=== PATIENT | female | born 1995 | race Caucasian/White ===

== ENCOUNTER → 2024-09-06 14:13 | Outpatient (CLI) | payer OTHER, SELFPAY ==
[2024-09-06 15:13] LABS: Add Manual Diff / Slide Review NO; Basophils Absolute Auto 0 /uL (0-100); Basophils Percent Auto 0.4 % (0-2); Eosinophils Absolute Auto 100 /uL (0-450); Eosinophils Percent Auto 0.8 % (2-4); Hematocrit 38.9 % (36-46); Hemoglobin 13.3 g/dL (12.0-16.0); Lymphocytes Absolute Auto 1400 /uL (1100-4500); Lymphocytes Percent Auto 18.5 % (25-40); Mean Corpuscular HGB Conc 34.2 % (30-36); Mean Corpuscular Hemoglobin 30.8 PG (26-34); Mean Corpuscular Volume 89.9 fL (80-100); Monocytes Absolute Auto 400 /uL (0-900); Monocytes Percent Auto 4.7 % (3-14); Neutrophils Absolute Auto 5800 /uL (1500-7000); Neutrophils Percent Auto 75.6 % (50-75); Platelet Count 247 X10^3/uL (150-400); Red Blood Cell Count 4.33 X10^6/uL (4.0-5.2); Red Cell Distribution Width 12.6 % (11.6-14.8); White Blood Cell Count 7.7 X10^3/uL (4.5-11.0)
[2024-09-06 15:14] LABS: Appearance Urine UA CLEAR; Bilirubin Urine UA NEGATIVE (NEGATIVE); Color Urine UA YELLOW; Glucose Urine UA NEGATIVE (Negative); Ketones Urine UA NEGATIVE (NEGATIVE); Leukocyte Esterase Urine UA TRACE (NEGATIVE); Nitrite Urine UA NEGATIVE (Negative); Occult Blood Urine UA NEGATIVE (Negative); Protein Urine UA NEGATIVE (Negative); Urobilinogen Urine UA 0.2 E.U./dL (0.2)
[2024-09-06 15:22] LABS: pH Urine UA 5.5 (4.5-8.0)
[2024-09-06 15:24] LABS: Bacteria Urine Occasional (0-1); RBC Urine None Seen (0-5/HPF); Squamous Epithelial Cell Urine 10-30 /HPF (0-5/HPF); Urine Volume 10mL (spun); WBC Urine 1-5/HPF (0-5/HPF)
[2024-09-06 15:25] LABS: Amorphous Sediment Urine 1+
[2024-09-06 15:29] LABS: Natera Collection Specimen Collected
[2024-09-07 15:05] LABS: Hepatitis B Surface Antigen NEGATIVE s/c (NEGATIVE)
[2024-09-07 15:18] LABS: HIV 1 & 2 Ab/Ag 4th Gen Combo NEGATIVE (NEGATIVE); Hep C Virus Ab w/Reflex Quant NEGATIVE s/c (NEGATIVE)
[2024-09-08 03:41] LABS: RPR Screen Non Reactive (Non Reactive)
[2024-09-08 10:12] LABS: Varicella IgG Antibody Reactive (Non Reactive)
== END ==
PROVIDERS: Referring Provider Student in an Organized Health Care Education/Training Program; Visit Provider Student in an Organized Health Care Education/Training Program
DX: Z34.00 Encounter for supervision of normal first pregnancy, unspecified trimester (principal)
CPT/HCPCS: 36415; 80055; 81003; 81015; 86787; 86803; 86850; 86900; 86901; 87086; 87389

== ENCOUNTER 2024-10-31 11:51 | Emergency (ER) | payer OTHER, SELFPAY ==
[2024-10-31 12:05] VITALS: BP 114/72; PULSE 92; RESP 17; TEMP 36.8; O2SAT 99; BMI 23.5
--- NOTE | 2024-10-31 12:08 | ED.BACK ---
HPI - Back Pain/Injury <Jeanna Zheng PA-C - Last Filed: 10/31/24 13:03> General Chief Complaint: Back Pain/Injury Stated Complaint: 18wk Preg; SI Joint Pain Time Seen by Provider: 10/31/24 12:04 History of Present Illness HPI Narrative: 28-year-old female presents with left-sided SI joint pain, this has been going on for about 3 weeks now. 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 She is followed by Dr. Dwyer. She states no issues with her , her last menstrual cycle was June 26, 2024, last ultrasound was September 30, 2024 with no issues per the patient. Her next appointment is scheduled for November 11 2024. Her she states no pain if she sits still, she points directly to the left ?dimple? on the left side where her pain is localized. It is nonradiating. She can not recall a specific mechanism of injury, she states it was painful when she stands from a seated position or turns in bed. She is a left-sided sleeper and again has no issues if she sits still. She use Tylenol over the weekend but has had no medications today, she has been using heat and ice with minimal relief. She recalls being treated for trochanteric bursitis on the left and began PT about 5 weeks ago that has subsequently improved but she believes some of the exercises may have triggered her current complaint. She reports no nausea, vomiting, abdominal pain, urinary symptoms, spotting, flank pain, no history of kidney stones. She reports no issues with bowel or bladder. No pain during bowel movements, no constipation or straining. She denies any discharge vaginally no blood or any malodor. Still attends PT at [facility] 2 times a week. She denies any numbness, tingling, weakness, foot drop, she does have reproducible pain with walking. She states she sneezed last week and this caused her the most pain, she also had an episode of vomiting last that she thought was related to some postnasal drainage and this also cause pain in the area described. She has had no recurrence of any vomiting, she has had no nausea. She endorses doing yoga and running regularly prior to her and maintains exceptional fitness level. Currently based at [facility], not currently flying ([employer] aircraft) due to . All other systems reviewed and are negative. Related Data Home Medications ?Medication ?Instructions ?Recorded ?Confirmed vitamin-ferrous sulfate tab PO 08/02/24 09/30/24 27 mg iron-folic acid 0.8 mg tablet Allergies Allergy/AdvReac Type Severity Reaction Status Date / Time morphine AdvReac Mild bradycardia Verified 10/31/24 12:05 Review of Systems <Jeanna Zheng PA-C - Last Filed: 10/31/24 13:03> Review of Systems Narrative: All other systems reviewed and are negative. Patient History <Jeanna Zheng PA-C - Last Filed: 10/31/24 13:03> Medical History Chicken pox (~2022) Abnormal Pap smear of cervix (~2021) Surgical History Anesthesia History of oral surgery (~2016) [place] teeth extracted (~2013) History of ankle surgery H/O tympanostomy (~1997) Family History Mother Bipolar disorder Infertility Obesity Father ADHD Hypothyroidism Eczema Heart attack Former smoker Obesity Sister Endometriosis Major depressive disorder Obesity Aunt History of recurrent miscarriages Uncle Autism Family/Other PCOS (polycystic ovarian syndrome) Family/Other Cerebral palsy Grandmother Macular degeneration Grandfather No problems noted. 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 occupational exposures/hazards: No (not since learning of ) special patrick needs: No travel history: recent (domestic only) seatbelt use: always helmet use: Yes water heater temp set < 120 deg: Yes working smoke detector in home: Yes fire extinguisher in home: Yes carbon monox detector in home: Yes firearms in home: Yes firearms unloaded and locked: Yes do you feel safe at home: Yes Smoking Status: Never smoker second hand exposure: No alcohol intake: never substance use type: does not use during the past year weight has: remained stable well-balanced diet: daily or most days daily servings fruits/ve or more times/day caffeine: Yes (single AM cup coffee) Type(s) of exercise: walking, aerobic and weight lifting Exam <Jeanna Zheng PA-C - Last Filed: 10/31/24 13:03> Initial Vital Signs Initial Vital Signs: Vital Signs Temperature 98.2 F 10/31/24 12:05 Pulse Rate 92 H 10/31/24 12:05 Respiratory Rate 17 10/31/24 12:05 Blood Pressure 114/72 10/31/24 12:05 Pulse Oximetry 99 10/31/24 12:05 Oxygen Delivery Method Room Air 10/31/24 12:05 Vital signs reviewed and are normal. Const General: cooperative, healthy appearing and well developed Other: Ambulatory, slightly favoring the right side but demonstrates full weightbear. Eyes General: Yes appearance normal, both eyes and all related structures Neck Neck: normal visual inspection, full ROM, trachea midline and supple Chest Chest: normal inspection of the chest Resp Effort & Inspection: normal respiratory effort Auscultation: clear to auscultation bilaterally, no crackles, no rales, no rhonchi and no wheezes Cardio Rate: regular rate Rhythm: regular rhythm GI Inspection: normal to inspection, no striae and no visible pulsation Palpation: soft, no hepatosplenomegaly and No guarding Back/Spine/Pelvis Back: normal to inspection, No CVA tenderness, No ecchymosis and No erythema Cervical Spine: normal cervical lordosis, cervical ROM normal and No cervical muscular tenderness Thoracic/Lumbar Spine: thoracic and lumbar spine normal to inspection and thoraco-lumbar ROM normal Sacroiliac Joints: tender to palpation left, No pain elicited by compression of iliac crest maneuver and pain elicited by passive hyperextension of lower extremity Other: No focal bony midline or interspace tenderness throughout the entire spine. She has focal tenderness along the left SI joint. There is no swelling or guarding. Straight leg raise is negative. Strength is grossly intact to both of her hips and back and all cardinal directions. Sensory is grossly intact. Pain is reproduced with simultaneous external rotation of the hip, abduction, and crossing her knee to the contralateral side. No sciatic notch tenderness. Heel and toe walk are grossly intact. Posture her position of comfort is slightly flexed from the waist during ambulation but she does have full extension. Rectal exam not performed. Neuro DTR's: Rt Patellar: 2+, Lt Patellar: 2+, Rt Ankle: 2+ and Lt Ankle: 2+ Plantar Reflexes: Downgoing: bilateral Other: Lower extremity strength is grossly intact in addition to sensory bilaterally. No focal deficits. <Venecia Altamirano MD - Last Filed: 11/01/24 07:07> Initial Vital Signs Initial Vital Signs: Vital Signs Temperature 98.2 F 10/31/24 12:05 Pulse Rate 92 H 10/31/24 12:05 Respiratory Rate 17 10/31/24 12:05 Blood Pressure 114/72 10/31/24 12:05 Pulse Oximetry 99 10/31/24 12:05 Oxygen Delivery Method Room Air 10/31/24 12:05 Course <Jeanna Zheng PA-C - Last Filed: 10/31/24 13:03> Vital Signs Vital signs: Vital Signs - 8 hr 10/31/24 12:05 Temperature 98.2 F Pulse Rate 92 H Respiratory Rate 17 Blood Pressure 114/72 Pulse Oximetry 99 Oxygen Delivery Method Room Air <Venecia Altamirano MD - Last Filed: 11/01/24 07:07> Vital Signs Vital signs: Vital Signs - 8 hr 10/31/24 12:05 Temperature 98.2 F Pulse Rate 92 H Respiratory Rate 17 Blood Pressure 114/72 Pulse Oximetry 99 Oxygen Delivery Method Room Air MDM - Back Pain/Injury <Jeanna Zheng PA-C - Last Filed: 10/31/24 13:03> MDM Narrative Medical decision making narrative: 28 yo fit/athletic female currently under ther care of PT at [facility]. She is 18 weeks gestational age with her 1st ever and has had no issues. She is followed closely by her PCP Dr. Brown and is UTD with her last US performed 09/30/24. Her clinical findings on examination and history are consistent with an SI joint pain and or dysfunction likely related to changes that occurred during . Pain was reproducible with SI joint stressing and palpation. No radicular findings on examination lumbar region was without pain and no midline tenderness. No pain at rest. Neurologically, grossly intact. Discussed this patient with attending Dr. Altamirano who recommends a belly belt. I also shared images with the patient and her on [employer], including an SI-joint belt. Her PT may have one available to try as well. Discussed the use of ice, heat, gentle stretches, avoiding any activity that causes pain. She will also contact her PCP and schedule an ED follow up as well as see her PT this week. I have given her a note releasing her from work for the next couple of days. Red flag warning signs were reviewed in detail. Please do not hesitate to seek emergency medical attention if you develop any new worrisome symptoms or any other concerns. Discharge Plan Departure Patient Disposition: Home Clinical Impression: Sacroiliac joint pain Activity Restrictions/Additional Instructions: Please consider an SI joint belt, or belly belt as discussed, may order online ([employer]). Follow up with your [facility] PT this week as well. You already have a new referral for SI-joint and should present this to your PT. Please call Dr. Brown's as well, and let them know you were seen in ED. I recommend continuing the ice, alternate heat, hydrotherapy if you have a movable shower head this can be helpful, avoid any awkward movements but try to remain active. You may use the Tylenol sparingly, please do not hesitate to return to the emergency department if you have any worsening pain, any new worrisome symptoms or any other concerns. Prescriptions: No Action vit-ferrous sulfat-FA 27 mg iron- 0.8 mg tablet PO Referrals: Alona Brown MD [Primary Care Provider, Family Practice] Stand Alone Forms: Patient Portal/API, Work Release Note ED Sign-out <Venecia Altamirano MD - Last Filed: 11/01/24 07:07> Cosign ED Attending Cosignature Attestation: I was immediately available in the department for consultation throughout this patient's visit. Venecia Altamirano MD
== END 2024-10-31 12:56 | disposition home or self-care (01) ==
PROVIDERS: Emergency Provider Physician Assistant Medical; PCP Student in an Organized Health Care Education/Training Program
DX: O99.891 Other specified diseases and conditions complicating pregnancy (principal); M53.3 Sacrococcygeal disorders, not elsewhere classified; Z3A.18 18 weeks gestation of pregnancy
CPT/HCPCS: 99281

== ENCOUNTER → 2024-11-15 13:43 | Outpatient (CLI) | payer OTHER, SELFPAY ==
--- NOTE | 2024-11-15 13:44 | DI.US.S_ITS ---
PROCEDURE: US OB >= 14 WEEKS FETUS INDICATIONS: 20 week anatomy scan OUTSIDE/PRIOR DATING DATA: Working ALYSIA: 04/02/2025 TECHNIQUE: Real-time scanning was performed of the fetus, with image documentation and biometric measurements. Endovaginal scanning: Not performed COMPARISON: None. FINDINGS: General: A single living intrauterine gestation is present. Presentation: Variable. Placenta: Placental position is posterior , without previa. Amniotic fluid index: 17.3 cm, normal range is 5-24 cm. Single deepest vertical pocket is 5.9 cm. heart rate: 139 beats per minute. Maternal cervical canal: 5.8 cm long. Normal lower limit is 2.5 cm. biometrics: Biparietal diameter: 4.8 centimeters, 20 weeks 4 days Head circumference: 17.1 centimeters, 19 weeks 5 days Abdominal circumference: 15.5 centimeters, 20 weeks 5 days Femur length: 3.6 centimeters, 21 weeks 2 days Clinically estimated gestational age: 20 weeks 2 days Composite gestational age from present scan: 20 weeks 4 days Estimated weight and percentile: 377 grams, 73 percentile Anatomic survey: Neuro: Ventricles are non-dilated at less than 10 mm. Cisterna magna is normal at 3-11 mm. Cerebellum is normal in size and morphology. Nuchal skin fold: Normal at less than 6 mm between 14-21 weeks gestational age. Face: Nose and lips, facial profile are normal. Spine: No evidence for spina bifida. Heart: Not well seen. Diaphragm: Diaphragm is intact. Stomach: Left-sided stomach is present. Kidneys: No hydronephrosis. Normal is less than 5 mm in 2nd trimester, less than 7 mm in 3rd trimester. Cord: 3-vessel cord has orthotopic insertion. Bladder: Normal in size. Extremities: All 4 extremities identified. IMPRESSION: Single living intrauterine at 20 weeks 2 days, ALYSIA 04/02/2025. Cardiac structures not well visualized. Short-term follow-up is recommended. Otherwise, normal anatomy survey. Estimated weight of 377 grams, 73 percentile. We strive to produce accurate, complete, and clear reports of imaging services. To assist us in improving patient care, this report was composed using standard report templates and voice recognition software. Therefore, it may contain abnormal punctuation, insertions and/or omissions. Occasional wrong-word or sound-alike substitutions may occur. Though we review the report and make efforts to correct it, we do recommend that the report be read carefully in proper context to recognize any text inaccuracies. Dictated by: Fabio Winston M.D. on 11/15/2024 at 16:14 Approved by: Fabio Winston M.D. on 11/15/2024 at 16:16
== END ==
PROVIDERS: PCP Student in an Organized Health Care Education/Training Program; Referring Provider Student in an Organized Health Care Education/Training Program; Visit Provider Student in an Organized Health Care Education/Training Program
DX: Z36.89 Encounter for other specified antenatal screening (principal); Z3A.20 20 weeks gestation of pregnancy
CPT/HCPCS: 76811

== ENCOUNTER → 2024-12-08 11:56 | Outpatient (CLI) | payer OTHER, SELFPAY ==
--- NOTE | 2024-12-08 11:57 | DI.US.S_ITS ---
PROCEDURE: US OB FOLLOW UP INDICATIONS: Addition images of heart needed for anatomy scan OUTSIDE/PRIOR DATING DATA: Last menstrual period (LMP): 06/26/2024. LMP-based estimated date of delivery (ALYSIA): 04/02/2025. First dating scan (date and location): 08/30/2024. Estimated date of delivery (ALYSIA) from first dating scan: 04/03/2025. The calculations are made using the clinical ALYSIA of 04/02/2025. TECHNIQUE: Real-time scanning was performed of the fetus, with image documentation. Endovaginal scanning: Not performed COMPARISON: 11/15/2024. FINDINGS: General: A single living intrauterine gestation is present. Presentation: Breech. Placenta: Placental position is posterior, without previa. Amniotic fluid index: 16.9 cm, normal range is 5-24 cm. Single deepest vertical pocket is 5.1 cm. heart rate: 157 beats per minute. Maternal cervical canal: 7.5 cm long. Normal lower limit is 2.5 cm. Clinically estimated gestational age: 23 weeks 4 days Heart: 4-chambered heart is present, with normal ventricular outflow tracts. IMPRESSION: 1. [place] living intrauterine at 23 weeks 4 days based on prior dating. 2. Normal placenta and amniotic fluid. 3. Normal appearance of the four-chamber heart and outflow tracks. This completes the anatomic survey. We strive to produce accurate, complete, and clear reports of imaging services. To assist us in improving patient care, this report was composed using standard report templates and voice recognition software. Therefore, it may contain abnormal punctuation, insertions and/or omissions. Occasional wrong-word or sound-alike substitutions may occur. Though we review the report and make efforts to correct it, we do recommend that the report be read carefully in proper context to recognize any text inaccuracies. Dictated by: Alfredo Carlos M.D. on 12/09/2024 at 9:27 Approved by: Alfredo Carlos M.D. on 12/09/2024 at 9:32
== END ==
PROVIDERS: PCP Student in an Organized Health Care Education/Training Program; Referring Provider Student in an Organized Health Care Education/Training Program; Visit Provider Student in an Organized Health Care Education/Training Program
DX: Z34.82 Encounter for supervision of other normal pregnancy, second trimester (principal); Z3A.23 23 weeks gestation of pregnancy
CPT/HCPCS: 76816

== ENCOUNTER → 2025-03-07 08:44 | Outpatient (CLI) | payer OTHER, SELFPAY ==
[2025-03-08 11:42] LABS: Strep Grp B PCR POS for Grp B Strep
== END ==
PROVIDERS: PCP Student in an Organized Health Care Education/Training Program; Visit Provider Student in an Organized Health Care Education/Training Program
DX: Z34.93 Encounter for supervision of normal pregnancy, unspecified, third trimester (principal); Z3A.36 36 weeks gestation of pregnancy
CPT/HCPCS: 87653

== ENCOUNTER 2025-03-29 18:25 | Inpatient (IN) | payer OTHER, SELFPAY ==
--- NOTE | 2025-03-29 18:55 | PM.OBHP.IH.1 ---
OB HPI Date/Time Date of admission: 03/29/25 Date Patient Seen: 03/29/25 History of Present Condition Chief complaint: Labor ALYSIA Calculator Estimated Delivery Date Method Current WG Current Estimate 04/02/25 LMP (Certain) 39w 3d Other Estimates 04/03/25 Ultrasound #1 39w 2d : 1 Para: 0 Narrative: This is a 29 yo G1 at 39w3d presenting with spontaneous labor beginning this afternoon with spontaneous rupture of membranes. She is GBS positive. uncomplicated. care: good care Dating criteria OB: LMP confirmed by 1st trimester US Ultrasounds: normal 1st trimester US and normal mid trimester US Obstetrical complications: none Medical complications OB: none Preadmission Labs Last OB Lab Results: Blood Type A Positive 09/06/24, 14:30 Antibody Screen Negative 09/06/24, 14:30 Hct, (36-46) 37.9 % 12/24/24, 10:10 Hgb, (12.0-16.0) 13.2 g/dL 12/24/24, 10:10 Hep Bs Antigen, (NEGATIVE) Negative s/c 09/06/24, 14:30 Hepatitis C Antibody, (NEGATIVE) Negative s/c 09/06/24, 14:30 Rubella Antibody, (>15) 102.0 IU/mL 09/06/24, 14:30 VZV IgG Antibody, (Non Reactive) Reactive 09/06/24, 14:30 Glucose 1 Hr 50 gm, (76-139) 39 mg/dL L* 12/24/24, 10:10 Group B Strep (PCR) Pos for grp b strep H 03/07/25, 08:44 Glucose Tolerance Testin hr Genetic Screens: Cell-free DNA: Normal Evaluation Evaluation Baseline heart rate: 145 Variability: Moderate (6-25) monitor accelerations: Present Monitor Decelerations: Periodic Contraction Frequency (minutes): 3 Uterine Contraction Intensity: Strong/Firm Category of Tracing: Reactive Status: Category l PFSH Medical History Chicken pox (~2022) Abnormal Pap smear of cervix (~2021) Surgical History Anesthesia History of oral surgery (~2016) [place] teeth extracted (~2013) History of ankle surgery H/O tympanostomy (~1997) Family History Mother Bipolar disorder Infertility Obesity Father ADHD Hypothyroidism Eczema Heart attack Former smoker Obesity Sister Endometriosis Major depressive disorder Obesity Aunt History of recurrent miscarriages Uncle Autism Family/Other PCOS (polycystic ovarian syndrome) Family/Other Cerebral palsy Grandmother Macular degeneration Grandfather No problems noted. 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 occupational exposures/hazards: No (not since learning of ) special patrick needs: No travel history: recent (domestic only) seatbelt use: always helmet use: Yes water heater temp set < 120 deg: Yes working smoke detector in home: Yes fire extinguisher in home: Yes carbon monox detector in home: Yes firearms in home: Yes firearms unloaded and locked: Yes do you feel safe at home: Yes second hand exposure: No alcohol intake: never substance use type: does not use during the past year weight has: remained stable well-balanced diet: daily or most days daily servings fruits/ve or more times/day caffeine: Yes (single AM cup coffee) Type(s) of exercise: walking, aerobic and weight lifting Meds Home Medications and Allergies Home Medications ?Medication ?Instructions ?Recorded ?Confirmed ?Type vitamin-ferrous sulfate tab PO 08/02/24 03/28/25 History 27 mg iron-folic acid 0.8 mg tablet Allergies Allergy/AdvReac Type Severity Reaction Status Date / Time morphine AdvReac Mild bradycardia Verified 03/28/25 09:22 Assessment and Plan Assessment and Plan Assessment and Plan narrative: 29 yo G1 at 39w3d here with SROM and spontaneous rupture of membranes. GBS pos. -admit for labor -GBS pos - antibiotics per protocol -anticipate vaginal delivery Time-Based Coding :: 30 minutes spent with patient and on the chart (including review of chart, obtaining history, exam, reviewing outside data, placing orders, documenting exam and treatment plan, and counseling patient) on 03/29/2025.
[2025-03-29] MEDS: LACTATED RINGERS 1,000 ML 100 ML IV (19:21)
[2025-03-29] MEDS: AMPICILLIN 2,000 MG in SODIUM CHLORIDE 0.9% 100 ML 200 MG IV (19:22)
[2025-03-29 19:33] LABS: Add Manual Diff / Slide Review NO; Hematocrit 39.5 % (36-46); Hemoglobin 13.5 g/dL (12.0-16.0); Lymphocytes Absolute Auto 1000 /uL (1100-4500); Mean Corpuscular HGB Conc 34.2 % (30-36); Mean Corpuscular Hemoglobin 30.8 PG (26-34); Mean Corpuscular Volume 89.9 fL (80-100); Platelet Count 234 X10^3/uL (150-400)
[2025-03-29 19:44] VITALS: BP 120/76
[2025-03-29] MEDS: OXYTOCIN PREMIX 30 UNIT/500 ML PLAST..BAG 335 UNIT IV (23:22)
--- NOTE | 2025-03-29 23:33 | P.PCNOB_ITS ---
Labor & Delivery Delivery date: 03/29/25 Delivery Time: 23:03 Intrapartal Events: None Cervical ripening method: none Induction method: none Delivery monitor: external FHT (intermittent) Route of delivery: L&D Laceration Description: Perineal - 1st Degree Estimated blood loss (mL): 125 Anesthesia Type: None Narrative: The patient progressed to C/C/+2 without augmentation. After approximately 1.5 hrs of maternal pushing efforts, the delivered in OA position and restituted JAN. There was a compound presentation with the hand. The anterior shoulder delivered with gentle downward pressure. The posterior shoulder and rest of body delivered with ease. The cord was doubly clamped and cut after it stopped pulsing with the infant handed off to maternal abdomen. The placenta delivered spontaneously and was intact with a 3-vessel cord. The fundus was noted to be firm with bimanual massage and pitocin. Inspection of the cervix, vagina, and perineum was notable for a first laceration and a first degree left periurethral. All tissues noted to be h emostatic. No stitches were placed. The patient tolerated delivery well and remained in the labor room with the at the bedside. Plan for aftercare: Routine care
[2025-03-29] MEDS: OXYTOCIN PREMIX 30 UNIT/500 ML PLAST..BAG 200 UNIT IV (23:35)
[2025-03-30] MEDS: DERMOPLAST SPRAY 20% 60 ML 1 SPRAY TOP (00:19)
[2025-03-30] MEDS: KETOROLAC 30 MG/ML VIAL IV ×2 (00:19→06:29)
[2025-03-30] MEDS: ACETAMINOPHEN 325 MG TABLET 650 MG PO ×3 (00:20→13:03)
[2025-03-30] MEDS: FERROUS SULFATE 325 MG TABLET PO (09:21)
[2025-03-30] MEDS: PRENATAL VIT,CALC/IRON/FOLIC 1 TABLET 1 TAB PO (09:21)
[2025-03-30] MEDS: DOCUSATE 100 MG CAPSULE PO (09:21)
[2025-03-30] MEDS: IBUPROFEN 600 MG TABLET PO (13:04)
--- NOTE | 2025-03-30 13:39 | PM.OBDS.1 ---
Discharge Providers Provider Date of admission: 03/29/25 18:25 Discharge Date: 03/30/25 Primary care physician: Alona Brown MD Consults: 03/29/25 18:52 Consult to Anesthesiology Urgent Comment: Consulting Provider: Anesthesiologist Reason for consultation: Epidural 03/29/25 23:36 Consult to Behavioral Health Technician Routine Comment: Discharge provider: Alona Brown MD Summary Hospital Course Date Patient Seen: 03/30/25 Time Patient Seen: 10:00 Diagnoses: Term Hospital Course: This is a 29 yo G1 now P1 who presented at 39w3d with spontaneous labor and spontaneous rupture of membranes. She progressed to completed without augmentation or pain control. She pushed for over an hour and delivered a viable female . She had a 1st degree perineal and periurethral laceration that were not repaired with suture as they were hemostatic. She recovered well in the period. She was ambulating and voiding. She was although baby was sleepy. Peripartum Data Infant Delivery Method: Natural Vaginal Laceration Description: Periurethral - 1st Degree and Perineal - 1st Degree complications: none Status at Discharge Cognitive/behavioral status at discharge: oriented Functional status at discharge: independent ambulation Overall status at discharge: patient is back to baseline Time Spent with Patient Time attestation: Total time spent providing and/or coordinating discharge services: 30 minutes Time spent: Greater than 30 minutes Objective Labs 03/29/25 19:05 Labs: Laboratory Results - last 24 hr 03/29/25 19:05 WBC 11.1 H RBC 4.39 Hgb 13.5 Hct 39.5 MCV 89.9 MCH 30.8 MCHC 34.2 RDW 12.9 Plt Count 234 Neut % (Auto) 85.6 H Lymph % (Auto) 9.3 L [place] % (Auto) 4.3 Eos % (Auto) 0.2 L Baso % (Auto) 0.6 Neut # (Auto) 9500 H Lymph # (Auto) 1000 L [place] # (Auto) 500 Eos # (Auto) 0 Baso # (Auto) 100 Blood Type A Positive Antibody Screen Negative Exam Narrative Exam Narrative: NAD, resting comfortably in bed Discharge Plan Discharge Plan Patient Disposition: Home Discharge orders & Medications Prescriptions: New acetaminophen 325 mg Tablet 650 mg PO Q6H PRN (Reason: Pain, Mild (1-3)) Qty: 60 0RF docusate sodium 100 mg Capsule 100 mg PO BID Qty: 60 0RF ibuprofen 600 mg Tablet 600 mg PO Q6H Qty: 60 0RF Continued vit-ferrous sulfat-FA 27 mg iron- 0.8 mg tablet PO Follow up/Referrals: Alona Brown MD [Primary Care Provider, [facility]] - 05/10/25 11:00 am Visit Report/Discharge Packet Stand Alone Forms: Discharge: Care, Patient Portal/API, Stroke Signs & Symptoms Discharge Data Primary Care Provider: Alona Brown Discharges patient from system. Discharge Date/Time: 03/30/25 19:37
[2025-03-30 18:33] VITALS: BP 120/73; PULSE 65; RESP 16; TEMP 37.2
== END 2025-03-30 19:37 | disposition home or self-care (01) | DRG 807 ==
PROVIDERS: Admitting Provider Obstetrics & Gynecology; PCP Student in an Organized Health Care Education/Training Program; Referring Provider Obstetrics & Gynecology; Visit Provider Obstetrics & Gynecology
DX: O42.02 Full-term premature rupture of membranes, onset of labor within 24 hours of rupture (principal); Z37.0 Single live birth; Z3A.39 39 weeks gestation of pregnancy; O99.824 Streptococcus B carrier state complicating childbirth; O32.6XX0 Maternal care for compound presentation, not applicable or unspecified
CPT/HCPCS: 59050; 85025; 86850; 86900; 86901; G0379; J0290; J1885; J2405; J2590; J7050; J7120